=== PATIENT | male | born 1955 | race Caucasian/White ===

== ENCOUNTER 2024-01-30 02:42 | Emergency (ER) | payer SELFPAY ==
[2024-01-30 02:45] VITALS: BP 125/73; PULSE 71; RESP 22; TEMP 36.7; O2SAT 95; BMI 34.4
--- NOTE | 2024-01-30 02:52 | ECG_ITS ---
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 Measurements Intervals [place] Rate: 73 P: 56 LA: 150 QRS: 62 QRSD: 87 T: 36 QT: 339 QTc: 374 Interpretive Statements SINUS RHYTHM WITH FREQUENT VENTRICULAR PREMATURE COMPLEXES ABNORMAL RHYTHM ECG No previous ECG available for comparison Electronically Signed On 01-30-2024 17:43:19 CDT by Gala Ariza M.D. [id number]
--- NOTE | 2024-01-30 02:56 | XRR_ITS ---
PROCEDURE INFORMATION: Exam: XR Chest Exam date and time: 01/30/2024 3:00 AM Age: 69 years old Clinical indication: Chest pressure; Patient HX: C/O chest pain; Additional info: Cp TECHNIQUE: Imaging protocol: Radiologic exam of the chest. Views: 1 view. COMPARISON: No relevant prior studies available. FINDINGS: Lungs: Scattered granulomas, largest of which is appreciated over the lateral left upper lobe. Prominent right hilum, likely secondary to granulomatous lymphadenopathy. Pleural spaces: Unremarkable. No pleural effusion. No pneumothorax. Heart/Mediastinum: Likely prominent epicardial fat pad. Vasculature: Atherosclerotic disease of the aortic arch. Bones/joints: Diffuse degenerative change of the visualized osseous structures. XR/XR chest 1V portable [id number] IMPRESSION: Asymmetric prominent right hilum likely secondary to granulomatous lymphadenopathy. CT of the chest with contrast should be obtained for definitive assessment.
[2024-01-30 03:03] VITALS: BP 122/83; PULSE 80; RESP 33; O2SAT 95
[2024-01-30 03:07] LABS: Basophils % 0.4 %; Hematocrit 45.9 % (37-53); Lymphocytes # 0.4 10^3/uL (0.8-4.8); Lymphocytes % 15.3 %; Mean Corpuscular HGB Conc 33.6 g/dL (30-55); Mean Corpuscular Hemoglobin 29.5 pg (27-33); Mean Corpuscular Volume 87.9 fl (82-101); Mean Platelet Volume 11.2 fL (7.4-10.4); Monocytes # 0.1 10^3/uL (0.2-0.9); Monocytes % 3.8 %; Neutrophils % 80.1 %; Nucleated Red Blood Cells % 0 %; Platelet Count 93 10^3/cmm (157-399); Red Blood Count 5.22 10^6/uL (3.85-5.65); Red Cell Distribution Width 13.4 % (12.1-15.1); White Blood Count 2.62 10^3/uL (3.29-11.43)
[2024-01-30] MEDS: lidocaine 2% viscous 15 ML, aluminum-mag hydrox-simethicon 30 ML, sucralfate oral liq 1 GM PO (03:18)
[2024-01-30 03:21] LABS: INR 1.05 (0.8-1.2)
[2024-01-30 03:22] LABS: Partial Thromboplastin Time 42.6 SECONDS (23.9-36.7)
--- NOTE | 2024-01-30 03:22 | ED_ITS ---
HPI - General Adult 2 General: Chief complaint: General Medical Stated complaint: temp chest burn n/v taken med not better Time Seen by Provider: 01/30/24 02:47 History of Present Illness: 69-year-old male gentleman with a histor y of a fever, and some diarrhea 2 days ago. He seemed to improve yesterday. This morning, he has had an indigestion type feeling in his chest and epigastrium. He vomited once without any relief. He states that usually when he vomits, he gets good relief from that. He was mildly short of breath as well. A couple of days ago he had had a cough, this is cleared. He ran fever a couple of days prior as well. He does not have any history of coronary disease. Associated symptoms: Deny confusion, headache(s), nausea or rash Review of Systems 2 Eyes: Denies: change in vision Resp: Denies: productive cough or wheezing GI: Denies: abdominal pain, nausea or hematochezia Skin/Breast: Denies: rash Neuro: Denies: headache(s), weakness in extremities, dizziness or confusion Physical Exam 2 Const: COMMON NORMALS: no acute distress GENERAL APPEARANCE: cooperative; not ill appearing and not frail appearing HENMT: COMMON NORMALS: normocephalic, atraumatic and Normal external nose present HEAD & SCALP: normocephalic and atraumatic FACE & SINUS: normal facial exam and face symmetric NOSE: Normal external nose present Eye: COMMON NORMALS: Equal, round and reactive pupils present and EOMs intact bilaterally PUPIL: Yes Equal, round and reactive pupils present Neck/C-Spine: GENERAL: Yes trachea midline Chest: CHEST: Yes Symmetrical chest wall rise Resp: COMMON NORMALS: normal respiratory effort, No retractions, No use of accessory muscles and clear to auscultation bilaterally AUSCULTATION: clear to auscultation bilaterally Cardio: COMMON NORMALS: regular rate and regular rhythm RATE: regular rate RHYTHM: regular rhythm GI: COMMON NORMALS: Normal to inspection, nondistended, normoactive bowel sounds present Extremity: COMMON NORMALS: no pedal edema Neuro: FARHAN COMA SCALE: document GCS findings [place] coma scale eye opening: Spontaneous Farhan coma scale verbal response: Orientated Farhan coma scale motor response: Obey commands [place] coma scale total score: 15 S ENSORY EXAM: Yes extremities (intact) Psych: COMMON NORMALS: speech normal SPEECH: Yes normal speech Skin: COMMON NORMALS: no rashes or lesions noted GENERAL SKIN EXAM: no rashes or lesions noted Course 2 Vital Signs: Vital signs: Vital Signs Temperature 98.1 F 01/30/24 02:45 Pulse Rate 80 01/30/24 08:50 Respiratory Rate 20 H 01/30/24 08:50 Blood Pressure 113/56 01/30/24 08:50 Pulse Oximetry 96 01/30/24 08:50 Oxygen Delivery Me thod Room Air 01/30/24 07:16 MDM - General Adult Medical Decision Making Vitals are quite stable here. He has had some improvement with GI cocktail. He has received Zofran and IV fluid here. His EKG is not remarkable. His original troponin is 18 with no change at 2h. WBC was low, with thrombocytopenia and slightly elevated liver enzymes. On further questioning, the patient has had several tick bites. This could be a cause of these findings. Because of abnormal read of chest x ray, and elevated liver enzymes, liver US completed with CT of the Chest/abd/pelvis with no signficant acute finding other than liver being greater than normal size. Will allow home. Tick panel drawn. Cover with doxycycline. symptomatic treatment otherwise. close outpt FU. Return for any worsening symptoms. Lab Data 01/30/24 02:56 01/30/24 02:56 Radiology Impressions Chest X-Ray 01/30/24 02:56 IMPRESSION: Asymmetric prominent right hilum likely secondary to granulomatous lymphadenopathy. CT of the chest with contrast should be obtained for definitive assessment. Abdomen Ultrasound 01/30/24 04:00 IMPRESSION: Dilated tubular structure at the flavio hepatis which was not investigated with Doppler signal. Differential includes dilated common bile duct versus dilated portal vein. Recommend contrasted cross-sectional evaluation for definitive assessment. Chest/Abdomen/Pelvis CT 01/30/24 04:45 IMPRESSION: Negative CT chest. No acute pathology. IMPRESSION: Negative for acute abdominopelvic pathology. COMMENTS: Consistent with the [place] [employer]'s Incidental Findings Committee white paper (J Am Bhavik Radiol 2018): Any incidental renal lesion less than 1 cm or classified as too small to characterize, or any incidental cystic renal lesion characterized as simple-appearing, is likely benign. No follow-up imaging is recommended for these lesions per consensus recommendations based on imaging criteria. Laboratory Results WBC 2.62 10^3/uL (3.29-11.43) L 01/30/24 02:56 RBC 5.22 10^6/uL (3.85-5.65) 01/30/24 02:56 Hgb 15.40 g/dL (11.27-16.99) 01/30/24 02:56 Hct 45.9 % (37-53) 01/30/24 02:56 MCV 87.9 fl (82-101) 01/30/24 02:56 MCH 29.5 pg (27-33) 01/30/24 02:56 MCHC 33.6 g/dL (30-55) 01/30/24 02:56 RDW 13.4 % (12.1-15.1) 01/30/24 02:56 Plt Count 93 10^3/cmm (157-399) L 01/30/24 02:56 MPV 11.2 fL (7.4-10.4) H 01/30/24 02:56 Neut % (Auto) 80.1 % 01/30/24 02:56 Lymph % (Auto) 15.3 % 01/30/24 02:56 [place] % (Auto) 3.8 % 01/30/24 02:56 Eos % (Auto) 0.0 % 01/30/24 02:56 Baso % (Auto) 0.4 % 01/30/24 02:56 Neut # (Auto) 2.10 10^3/uL (1.8-7.7) 01/30/24 02:56 Lymph # (Auto) 0.4 10^3/uL (0.8-4.8) L 01/30/24 02:56 [place] # (Auto) 0.1 10^3/uL (0.2-0.9) L 01/30/24 02:56 Eos # (Auto) 0.0 10^3/uL (0.0-0.8) 01/30/24 02:56 Baso # (Auto) 0.0 10^3/uL (0.0-0.1) 01/30/24 02:56 Nucleated RBC % (auto) 0 % 01/30/24 02:56 Nucleated RBCs # 0.0 /100WBC 01/30/24 02:56 PT 14.00 SECONDS (12.1-14.9) 01/30/24 02:56 INR 1.05 (0.8-1.2) 01/30/24 02:56 APTT 42.6 SECONDS (23.9-36.7) H 01/30/24 02:56 Sodium 130 mmol/L (136-145) L 01/30/24 02:56 Potassium 4.2 mmol/L (3.5-5.1) 01/30/24 02:56 Chloride 94 mmol/L (98-107) L 01/30/24 02:56 Carbon Dioxide 27 mmol/L (22-29) 01/30/24 02:56 Anion Gap 13.2 (5-19) 01/30/24 02:56 BUN 13 mg/dL (8-23) 01/30/24 02:56 Creatinine 1.1 mg/dL (0.7-1.2) 01/30/24 02:56 GFR Calculation Not Reportable 01/30/24 02:56 Glucose 131 mg/dL (65-115) H 01/30/24 02:56 Calculated Osmolality 272 mOsm/kg (285-295) L 01/30/24 02:56 Calcium 9.0 mg/dL (8.5-10.5) 01/30/24 02:56 Total Bilirubin 1.6 mg/dL (0.15-1.2) H 01/30/24 02:56 AST 120 U/L (0-40) H 01/30/24 02:56 ALT 107 U/L (0-41) H 01/30/24 02:56 Alkaline Phosphatase 320 U/L (40-130) H 01/30/24 02:56 Creatine Kinase 166 U/L (39-308) 01/30/24 02:56 Troponin T Baseline 18 ng/L (0-15) H 01/30/24 02:56 Troponin T 120 Minute 17.20 ng/L (0-15) H 01/30/24 04:54 Delta Troponin T -0.80 ABS# (0-10) L 01/30/24 04:54 NT-Pro-B Natriuret Pep 376 pg/mL (0-125) H 01/30/24 02:56 Total Protein 6.2 g/dL (6.6-8.7) L 01/30/24 02:56 Albumin 3.3 g/dL (3.5-5.2) L 01/30/24 02:56 Globulin 2.9 g/dL (1.3-4.6) 01/30/24 02:56 Lipase 70 U/L (13-60) H 01/30/24 02:56 Urine Color Yellow (Yellow) 01/30/24 05:28 Urine Appearance Clear (CLEAR) 01/30/24 05:28 Urine pH 8 (5-7) H 01/30/24 05:28 Ur Specific [place] 1.010 (1.005-1.030) 01/30/24 05:28 Urine Protein 1+ (Negative) H 01/30/24 05:28 Urine Glucose (UA) Norm (Normal) 01/30/24 05:28 Urine Ketones 1+ (Negative) H 01/30/24 05:28 Urine Blood Neg (Negative) 01/30/24 05:28 Urine Nitrate Negative (Negative) 01/30/24 05:28 Urine Bilirubin 1+ (Negative) H 01/30/24 05:28 Prot Sulfosalicylic Acd Negative (Negative) 01/30/24 05:28 Urine Urobilinogen 4 mg/dL (Negative) H 01/30/24 05:28 Ur Leukocyte Esterase Negative (Negative) 01/30/24 05:28 Urine RBC 0-4 /hpf (0-2) H 01/30/24 05:28 Urine WBC 0-4 /hpf (0-5) H 01/30/24 05:28 Ur Squamous Epith Cells 0-4 /hpf (0-5) H 01/30/24 05:28 Amorphous Sediment Not Reportable 01/30/24 05:28 Urine Bacteria Trace /hpf (NONE) 01/30/24 05:28 Urine Mucus 1+ /hpf 01/30/24 05:28 Lyme Ab (Western Blot) <0.90 index 01/30/24 04:54 All radiology interpretation(s) finalized by discharge Discharge Plan Discharge Patient Disposition: Home Clinical Impression: Vomiting, Tick borne fever Condition: Stable Prescriptions: New ondansetron 4 mg tablet,disintegrating 4 mg PO Q6H PRN (Reason: nausea and vomiting) Qty: 14 0RF doxycycline hyclate 100 mg tablet 100 mg PO BID 14 Days Qty: 28 0RF Discharge Orders: Discharge ED (Routine); Ordered 01/30/24 Ordered By: Geovanni Leonardo Patient Instructions: Opioid Safety, Pain Management, Vomiting - Adult Activity Restrictions/Additional Instructions: Follow a liquid diet for the next 24 hours. Take the nausea medicine prescribed scheduled every 4 hours while awake for the next 24 hours. Antibiotics as directed. You may begin to add solid food back and after 24 hours if no vomiting. Control fever. Return for inability to control temperatures, vomiting liquids or medications, worsening pain despite treatment, other concerning symptoms. See your doctor later this week. Coding Level of Care Code ED Topographical Drafter for Indira Camp
[2024-01-30 03:27] LABS: Troponin(5th) Baseline 18 ng/L (0-15)
[2024-01-30 03:30] LABS: Slide Review Slide Review Perform
[2024-01-30 03:36] LABS: Alanine Aminotransferase 107 U/L (0-41); Albumin Level 3.3 g/dL (3.5-5.2); Alkaline Phosphatase 320 U/L (40-130); Anion Gap 13.2 (5-19); Aspartate Amino Transferase 120 U/L (0-40); Blood Urea Nitrogen 13 mg/dL (8-23); Carbon Dioxide 27 mmol/L (22-29); Chloride 94 mmol/L (98-107); Creatine Phosphokinase 166 U/L (39-308); Creatinine Clr Calc Pharmacy 76.0958; Globulin 2.9 g/dL (1.3-4.6); Glucose 131 mg/dL (65-115); Lipase 70 U/L (13-60); NT Pro B Type Natriuretic Pept 376 pg/mL (0-125); Osmolality Calculated 272 mOsm/kg (285-295); Potassium 4.2 mmol/L (3.5-5.1); Sodium 130 mmol/L (136-145); Total Bilirubin 1.6 mg/dL (0.15-1.2); Total Protein 6.2 g/dL (6.6-8.7)
--- NOTE | 2024-01-30 04:00 | USR_ITS ---
PROCEDURE INFORMATION: Exam: US Abdomen, Limited; Right Upper Quadrant Exam date and time: 01/30/2024 4:53 AM Age: 69 years old Clinical indication: Abdominal pain; Epigastric; Prior surgery; Surgery date: 6+ months; Surgery type: Gb removed; Additional info: Epigastric pain, elevated liver enzymes TECHNIQUE: Imaging protocol: Real time ultrasound of the abdomen with image documentation. Limited exam focused on the right upper quadrant. COMPARISON: No relevant prior studies available. FINDINGS: Liver: Dilated tubular structures appreciated at the flavio hepatis. Doppler was not performed and therefore cannot exclude vascular etiology. Gallbladder: Surgically absent. Biliary ducts: Normal. No stones. No dilation. Pancreas: Visualized pancreas is unremarkable. Right kidney: Normal. No mass. No hydronephrosis. US/US abdomen limited [id number] IMPRESSION: Dilated tubular structure at the flavio hepatis which was not investigated with Doppler signal. Differential includes dilated common bile duct versus dilated portal vein. Recommend contrasted cross-sectional evaluation for definitive assessment.
--- NOTE | 2024-01-30 04:45 | CTR_ITS ---
PROCEDURE INFORMATION: Exam: CT Chest With Contrast; Diagnostic Exam date and time: 01/30/2024 5:48 AM Age: 69 years old Clinical indication: Abdominal pain; Acute; Chest pressure; Prior surgery; Surgery date: 6+ months; Surgery type: Gb; Additional info: Chest and epigastric pain, elevated liver enzymes, TECHNIQUE: Imaging protocol: Diagnostic computed tomography of the chest with contrast. Radiation optimization: All CT scans at this facility use at least one of these dose optimization techniques: automated exposure control; mA and/or kV adjustment per patient size (includes targeted exams where dose is matched to clinical indication); or iterative reconstruction. Contrast material: OMNI 350; Contrast volume: 100 ml; Contrast route: INTRAVENOUS (IV); COMPARISON: CR (CHEST, ) 01/30/2024 3:00 AM RADIATION DOSE METRICS: Total DLP (mGy-cm): 1399.2 FINDINGS: Lungs: Multiple bilateral calcified granulomas. Negative for pulmonary consolidation. Negative for pulmonary mass. Negative for endobronchial obstruction. Pleural spaces: Left anterior linear calcified pleural plaques. Negative for pleural effusion. Negative pneumothorax. Heart: Negative for pericardial effusion. No significant cardiac chamber dilation. Coronary arteries: Moderate volume coronary calcifications. Lymph nodes: Unremarkable. No enlarged lymph nodes. Vasculature: Unremarkable. No aortic aneurysm. Bones/joints: Multiple smoothly healed left posterior rib fracture deformities. Negative for acute thoracic fractures. Soft tissues: Unremarkable. PROCEDURE INFORMATION: Exam: CT Abdomen And Pelvis With Contrast Exam date and time: 01/30/2024 5:48 AM Age: 69 years old Clinical indication: Abdominal pain; Acute; Chest pressure; Prior surgery; Surgery date: 6+ months; Surgery type: Gb; Additional info: Chest and epigastric pain, elevated liver enzymes, TECHNIQUE: Imaging protocol: Computed tomography of the abdomen and pelvis with contrast. Radiation optimization: All CT scans at this facility use at least one of these dose optimization techniques: automated exposure control; mA and/or kV adjustment per patient size (includes targeted exams where dose is matched to clinical indication); or iterative reconstruction. Contrast material: OMNI 350; Contrast volume: 100 ml; Contrast route: INTRAVENOUS (IV); COMPARISON: US gall bladder [id number] 01/30/2024 4:53 AM RADIATION DOSE METRICS: Total DLP (mGy-cm): 1399.2 FINDINGS: Liver: Normal. No mass. Gallbladder and bile ducts: Cholecystectomy. Nondilated biliary system. Pancreas: Normal. No ductal dilation. Spleen: Normal. No splenomegaly. Adrenal glands: Normal. No mass. Kidneys and ureters: Exophytic simple cortical cyst of the left kidney. Symmetric renal enhancement. Negative for hydronephrosis. Stomach and bowel: Unremarkable. No obstruction. No mucosal thickening. Appendix: No evidence of appendicitis. Intraperitoneal space: Unremarkable. No free air. No significant fluid collection. Vasculature: Unremarkable. No abdominal aortic aneurysm. Lymph nodes: Unremarkable. No enlarged lymph nodes. Urinary bladder: Unremarkable as visualized. Reproductive: Unremarkable as visualized. Bones/joints: Vertebral endplate concavities at L3 without acute fracture lucency visible. Normal lumbar spine alignment. Negative for acute pelvis fracture. Soft tissues: Unremarkable. CT/CT chest abdpel w/*[id number] IMPRESSION: Negative CT chest. No acute pathology. IMPRESSION: Negative for acute abdominopelvic pathology. COMMENTS: Consistent with the [employer] [place] [employer]'s Incidental Findings Committee white paper (J Am Bhavik Radiol 2018): Any incidental renal lesion less than 1 cm or classified as too small to characterize, or any incidental cystic renal lesion characterized as simple-appearing, is likely benign. No follow-up imaging is recommended for these lesions per consensus recommendations based on imaging criteria.
[2024-01-30 04:55] VITALS: BP 109/66; PULSE 75; RESP 27; O2SAT 96
[2024-01-30 05:41] LABS: Add Urine Microscopic? YES; Bilirubin Urine 1+ (Negative); Blood Urine Neg (Negative); Glucose Urine UA Norm (Normal); Ketones Urine 1+ (Negative); Leukocyte Esterase Urine Negative (Negative); Nitrate Urine Negative (Negative); Protein Urine 1+ (Negative); Sulfosalicylic Acid Urine Negative (Negative); Urine Appearance Clear (CLEAR); Urine Color Yellow (Yellow); Urobilinogen Urine 4 mg/dL (Negative); pH Urine 8 (5-7)
[2024-01-30 05:42] LABS: Bacteria Urine TRACE /hpf; Mucus Urine 1+ /hpf; RBC Urine 0-4 /hpf (0-2); Squamous Epithelial Cell Urine 0-4 /hpf (0-5); WBC Urine 0-4 /hpf (0-5)
[2024-01-30] MEDS: iohexol 350 mg/mL 500 mL Btl (per mL) IV (05:58)
[2024-01-30] MEDS: sodium chloride 0.9% 1,000 ML 999 ML IV (07:15)
[2024-01-30 07:16] VITALS: BP 113/56; PULSE 82; RESP 25; O2SAT 95
[2024-01-30] MEDS: ondansetron 2 mg/ML SDV 2 mL 4 MG IVP (07:16)
[2024-01-30] MEDS: doxycycline 100 mg Tablet PO (07:58)
[2024-01-30 08:50] VITALS: BP 113/56; PULSE 80; RESP 20; O2SAT 96
[2024-01-31 13:54] LABS: Lyme AB Screen <0.90 index
[2024-02-04 15:31] LABS: RMSF IGG DETECTED; RMSF IGM NOT DETECTED
[2024-02-07 17:04] LABS: E. Chaffeensis AB IGG <1:64; E. Chaffeensis AB IGM <1:20
== END 2024-01-30 08:51 | disposition home or self-care (01) ==
PROVIDERS: Emergency Provider Emergency Medicine
DX: A93.8 Other specified arthropod-borne viral fevers (principal); R11.11 Vomiting without nausea
CPT/HCPCS: 36415; 71045; 71260; 74177; 76705; 80053; 81001; 82550; 83690; 83880; 84484; 85025; 85610; 85730; 86618; 86666; 86757; 93005; 96361; 96374; 99285; J2405; J7030; Q9967

== ENCOUNTER 2024-11-04 04:13 | Emergency (ER) | payer MEDICARE, SELFPAY ==
[2024-11-04 04:16] VITALS: BP 139/80; PULSE 86; RESP 20; TEMP 36.6; O2SAT 92; BMI 32.1
--- NOTE | 2024-11-04 04:23 | XRR_ITS ---
PROCEDURE INFORMATION: Exam: XR Chest Exam date and time: 11/04/2024 4:34 AM Age: 69 years old Clinical indication: Cough and shortness of breath; Cough with SOB TECHNIQUE: Imaging protocol: Radiologic exam of the chest. Views: 1 view. COMPARISON: CT chest jocelinl w/*[id number] 01/30/2024 5:48 AM FINDINGS: Lungs: Unremarkable. No consolidation. Pleural spaces: Unremarkable. No pleural effusion. No pneumothorax. Heart/Mediastinum: Unremarkable. No cardiomegaly. Bones/joints: Unremarkable. XR/XR chest 1V portable [id number] IMPRESSION: No acute findings.
[2024-11-04 04:33] LABS: Basophils % 0.4 %; Eosinophils # 0.1 10^3/uL (0.0-0.8); Eosinophils % 0.5 %; Hematocrit 44.8 % (37-53); Lymphocytes # 1.2 10^3/uL (0.8-4.8); Lymphocytes % 12.5 %; Mean Corpuscular Hemoglobin 29.9 pg (27-33); Mean Corpuscular Volume 90.5 fl (82-101); Mean Platelet Volume 11.3 fL (7.4-10.4); Monocytes # 0.6 10^3/uL (0.2-0.9); Monocytes % 6.8 %; Neutrophils # 7.29 10^3/uL (1.8-7.7); Neutrophils % 79.3 %; Nucleated Red Blood Cells % 0 %; Platelet Count 169 10^3/cmm (157-399); Red Blood Count 4.95 10^6/uL (3.85-5.65); Red Cell Distribution Width 12.9 % (12.1-15.1); White Blood Count 9.21 10^3/uL (3.29-11.43)
[2024-11-04 04:45] VITALS: BP 108/65; PULSE 72; O2SAT 93
[2024-11-04 04:52] LABS: Alanine Aminotransferase 14 U/L (0-41); Albumin Level 3.7 g/dL (3.5-5.2); Alkaline Phosphatase 107 U/L (40-130); Anion Gap 16.3 (5-19); Aspartate Amino Transferase 21 U/L (0-40); Blood Urea Nitrogen 13 mg/dL (8-23); Calcium 8.4 mg/dL (8.5-10.5); Carbon Dioxide 23 mmol/L (22-29); Chloride 99 mmol/L (98-107); Creatinine Clr Calc Pharmacy 67.4363; Globulin 2.9 g/dL (1.3-4.6); Glucose 141 mg/dL (65-115); Osmolality Calculated 280 mOsm/kg (285-295); Potassium 4.3 mmol/L (3.5-5.1); Sodium 134 mmol/L (136-145); Total Bilirubin 0.2 mg/dL (0.15-1.2); Total Protein 6.6 g/dL (6.6-8.7)
[2024-11-04 05:00] VITALS: BP 112/57; PULSE 74; O2SAT 94
[2024-11-04 05:15] LABS: Influenza A POSITIVE (Negative); Influenza B NEGATIVE (Negative); Respiratory Syncytial Virus Ce NEGATIVE (Negative); SARS-CoV-2 PCR NEGATIVE (Negative)
--- NOTE | 2024-11-04 05:29 | ED_ITS ---
HPI - URI/Sore Throat 2 General: Chief Complaint: Upper Respiratory Infection Stated Complaint: SOB cough ribs hurt d/ Time Seen by Provider: 11/04/24 04:19 History of Present Illness: This patient is a 69-year-old white male who presents to the emergency department stating that he is felt ill for the past 2 days. He has had some nausea, diarrhea, cough, congestion and low-grade fever. Associated symptoms: Reports diarrhea, fever(s), nasal congestion and nausea Related Data Previous Rx's ?Medication ?Instructions ?Recorded ondansetron 4 mg disintegrating 4 mg PO Q6H PRN nausea and 01/30/24 tablet vomiting #14 tabs Allergies Allergy/AdvReac Type Severity Reaction Status Date / Time No Known Allergies Allergy Verified 01/30/24 02:59 Review of Systems 2 General: Reports: 10 or more systems reviewed and unremarkable except in HPI and below Const: Reports: fever(s) and body aches ENMT: Reports: nasal congestion Resp: Reports: non-productive cough GI: Reports: nausea and diarrhea Physical Exam 2 Const: COMMON NORMALS: no acute distress, patient oriented x3 and no limitations GENERAL APPEARANCE: cooperative HENMT: COMMON NORMALS: normocephalic, atraumatic, moist oral mucous membranes and oropharynx normal HEAD & SCALP: normal to inspection, normocephalic and atraumatic FACE & SINUS: normal facial exam NOSE: Nasal discharge present Eye: COMMON NORMALS: Equal, round and reactive pupils present, EOMs intact bilaterally and conjunctivae normal GENERAL EYE: appearance normal, both eyes and all related structures CONJUNCTIVA: Yes conjunctivae normal PUPIL: Yes Equal, round and reactive pupils present Neck/C-Spine: COMMON NORMALS: supple and no JVD Chest: COMMONS NORMALS: normal inspection of the chest Resp: COMMON NORMALS: normal respiratory effort and clear to auscultation bilaterally AUSCULTATION: clear to auscultation bilaterally Cardio: COMMON NORMALS: no JVD, regular rate, regular rhythm, No gallops present (Cardio), No murmurs present (Cardio) and No rub (Cardio) RATE: r egular rate RHYTHM: regular rhythm GI: COMMON NORMALS: Normal to inspection, nondistended, normoactive bowel sounds present, Soft to palpation and non-tender AUSCULTATION: Yes normoactive bowel sounds PALPATION: Yes Soft to palpation : COMMON NORMALS: Yes no CVA tenderness BLADDER/KIDNEY EXAM: Yes no CVA tenderness Back/Pelvis: COMMON NORMALS: no CVA tenderness and thoracic and lumbar spine normal to inspection Extremity: COMMON NORMALS: normal to inspection Neuro: COMMON NORMALS: patient oriented x3 and CN's II-XII intact bilaterally Psych: COMMON NORMALS: mental status grossly normal, Normal thought process present and cooperative THOUGHT PROCESS: Normal thought process present Skin: COMMON NORMALS: no rashes or lesions noted, turgor normal and no jaundice GENERAL SKIN EXAM: no rashes or lesions noted and turgor normal Course 2 Vital Signs: Vital signs: Vital Signs Temperature 97.9 F 11/04/24 04:16 Pulse Rate 72 11/04/24 04:45 Respiratory Rate 20 H 11/04/24 04:16 Blood Pressure 108/65 11/04/24 04:45 Pulse Oximetry 93 11/04/24 04:45 Oxygen Delivery Me thod Room Air 11/04/24 04:45 MDM - URI/Sore Throat Medical Decision Making Chest x-ray did not reveal any infiltrates. CBC and CMP were normal. COVID- negative, RSV negative, influenza A+. Patient was instructed to take [id number] cough and cold medications. Tylenol and/or Motrin as needed for fever, aches and pains. Push fluids get some rest. Follow-up with primary care physician as needed. He was discharged in stable condition. Lab Data 11/04/24 04:25 11/04/24 04:25 Radiology Impressions Chest X-Ray 11/04/24 04:23 IMPRESSION: No acute findings. Laboratory Results WBC 9.21 10^3/uL (3.29-11.43) 11/04/24 04:25 RBC 4.95 10^6/uL (3.85-5.65) 11/04/24 04:25 Hgb 14.80 g/dL (11.27-16.99) 11/04/24 04:25 Hct 44.8 % (37-53) 11/04/24 04:25 MCV 90.5 fl (82-101) 11/04/24 04:25 MCH 29.9 pg (27-33) 11/04/24 04:25 MCHC 33.0 g/dL (30-55) 11/04/24 04:25 RDW 12.9 % (12.1-15.1) 11/04/24 04:25 Plt Count 169 10^3/cmm (157-399) 11/04/24 04:25 MPV 11.3 fL (7.4-10.4) H 11/04/24 04:25 Neut % (Auto) 79.3 % 11/04/24 04:25 Lymph % (Auto) 12.5 % 11/04/24 04:25 [place] % (Auto) 6.8 % 11/04/24 04:25 Eos % (Auto) 0.5 % 11/04/24 04:25 Baso % (Auto) 0.4 % 11/04/24 04:25 Neut # (Auto) 7.29 10^3/uL (1.8-7.7) 11/04/24 04:25 Lymph # (Auto) 1.2 10^3/uL (0.8-4.8) 11/04/24 04:25 [place] # (Auto) 0.6 10^3/uL (0.2-0.9) 11/04/24 04:25 Eos # (Auto) 0.1 10^3/uL (0.0-0.8) 11/04/24 04:25 Baso # (Auto) 0.0 10^3/uL (0.0-0.1) 11/04/24 04:25 Nucleated RBC % (auto) 0 % 11/04/24 04:25 Nucleated RBCs # 0.0 /100WBC 11/04/24 04:25 Sodium 134 mmol/L (136-145) L 11/04/24 04:25 Potassium 4.3 mmol/L (3.5-5.1) 11/04/24 04:25 Chloride 99 mmol/L (98-107) 11/04/24 04:25 Carbon Dioxide 23 mmol/L (22-29) 11/04/24 04:25 Anion Gap 16.3 (5-19) 11/04/24 04:25 BUN 13 mg/dL (8-23) 11/04/24 04:25 Creatinine 1.2 mg/dL (0.7-1.2) 11/04/24 04:25 GFR Calculation Not Reportable 11/04/24 04:25 Glucose 141 mg/dL (65-115) H 11/04/24 04:25 Calculated Osmolality 280 mOsm/kg (285-295) L 11/04/24 04:25 Calcium 8.4 mg/dL (8.5-10.5) L 11/04/24 04:25 Total Bilirubin 0.2 mg/dL (0.15-1.2) 11/04/24 04:25 AST 21 U/L (0-40) 11/04/24 04:25 ALT 14 U/L (0-41) 11/04/24 04:25 Alkaline Phosphatase 107 U/L (40-130) 11/04/24 04:25 Total Protein 6.6 g/dL (6.6-8.7) 11/04/24 04:25 Albumin 3.7 g/dL (3.5-5.2) 11/04/24 04:25 Globulin 2.9 g/dL (1.3-4.6) 11/04/24 04:25 Coronavirus (PCR) Negative (Negative) 11/04/24 04:23 Influenza A (PCR) Positive (Negative) 11/04/24 04:23 Influenza Type B (PCR) Negative (Negative) 11/04/24 04:23 RSV (PCR) Negative (Negative) 11/04/24 04:23 All radiology interpretation(s) finalized by discharge Discharge Plan Discharge Patient Disposition: Home Clinical Impression: Influenza Condition: Stable Prescriptions: No Action ondansetron 4 mg tablet,disintegrating 4 mg PO Q6H PRN (Reason: nausea and vomiting) Qty: 14 0RF Discharge Orders: Discharge ED (Routine); Ordered 11/04/24 Ordered By: Rhett Zheng Referrals: Roberto Bright [Primary Care Provider] - Patient Instructions: Influenza (DC) Print Language: Polish Coding Level of Care Code ED Waiter/Waitress Economy Class for Indira Camp
[2024-11-04 05:30] VITALS: BP 123/67; PULSE 86; O2SAT 95
[2024-11-04 06:00] VITALS: BP 105/59; PULSE 71; O2SAT 93
[2024-11-04 06:24] VITALS: BP 105/72; PULSE 86; O2SAT 95
== END 2024-11-04 06:20 | disposition home or self-care (01) ==
PROVIDERS: Emergency Provider Emergency Medicine; PCP Family Medicine
DX: J10.1 Influenza due to other identified influenza virus with other respiratory manifestations (principal); Z11.52 Encounter for screening for COVID-19
CPT/HCPCS: 36415; 71045; 80053; 85025; 87637; 99284

== ENCOUNTER 2025-03-19 08:29 | Outpatient (CLI) | payer MEDICARE, SELFPAY ==
--- NOTE | 2025-03-19 08:34 | CT_ITS ---
WS: [id number] LDCT LUNG CANCER SCREENING TECHNIQUE: Noncontrast CT of the chest with coronal and sagittal reformatted images. CLINICAL INFORMATION: NICOTINE DEPENDENCE,CIGARETTES COMPARISON: None. DLP: 95.89 mGy.cm DIvol: Mean CTDIvol: 2.10 (mGy) All CT scans at [facility] use at least one of these dose optimization techniques: automated exposure control; mA and/or kV adjustment per patient size (includes targeted exams where dose is matched to clinical indication); or iterative reconstruction. FINDINGS: Few calcified granulomas. Subsegmental atelectasis in the RIGHT middle lobe and RIGHT lower lobe. Tiny RIGHT perifissural nodules. Tiny LEFT perifissural nodules. Calcified pleural plaques LEFT upper lobe. Aortic calcification. Normal caliber thoracic aorta. Coronary calcification. No mediastinal or hilar lymphadenopathy. No axillary lymphadenopathy. Small esophageal hernia. Adrenal glands are normal. Hepatomegaly. Cholecystectomy clips. Fatty atrophy of the pancreas. Mild thoracic curve. Mild thoracic kyphosis. CT/CT lung screening [id number] IMPRESSION: LUNG-RADS: 2-Benign Appearance or Behavior FOLLOW UP: 12 Month: Continue annual screening with LDCT
== END 2025-03-19 08:30 | disposition home or self-care (01) ==
LOC: RAD 08:30
PROVIDERS: PCP Family Medicine; Visit Provider Nurse Practitioner Family
DX: Z12.2 Encounter for screening for malignant neoplasm of respiratory organs (principal); F17.210 Nicotine dependence, cigarettes, uncomplicated; J84.10 Pulmonary fibrosis, unspecified; J98.11 Atelectasis; J92.9 Pleural plaque without asbestos; I70.0 Atherosclerosis of aorta; I25.10 Atherosclerotic heart disease of native coronary artery without angina pectoris; K44.9 Diaphragmatic hernia without obstruction or gangrene; R16.0 Hepatomegaly, not elsewhere classified; Z90.49 Acquired absence of other specified parts of digestive tract; K86.89 Other specified diseases of pancreas; M43.8X4 Other specified deforming dorsopathies, thoracic region; M40.294 Other kyphosis, thoracic region
CPT/HCPCS: 71271

== ENCOUNTER 2025-04-01 07:43 | Outpatient (CLI) | payer MEDICARE, SELFPAY ==
--- NOTE | 2025-04-01 07:49 | USCV_ITS ---
Rhett Pak Age: 70 Gender: M : 1955 Exam Date: 04/01/2025 08:10 Ordering Phys: Christine Christensen NP Technologist: SHAUN Exam Location: [facility] [place] Indication: AAA Screening HISTORY: Diameter (cm) AP x Transverse x Length Velocity (cm/s) Waveform Prox Aorta: 1.90 x 1.70 x 53.20 Triphasic Mid Aorta: 1.80 x 1.80 x 74.80 Triphasic Distal Aorta: 1.60 x 1.40 x 65.30 Triphasic Right Iliac Prox: 1.20 x 0.93 x 120.90 Triphasic Left Iliac Prox: 1.07 x 0.80 x 151.10 Triphasic Stent Prox Landing x x Aneurysmal Sac Max x x Lt Lat Sac Dim Rt Lat Sac Dim Stent Dist Landing x x Right Iliac Stent x x Left Iliac Stent x x Right Renal Art Left Renal Art FINDINGS: CONCLUSIONS No evidence of abdominal aortic or bilateral iliac aneurysm. 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 Abner Alanis MD (Electronically Signed) Final Date: 01 April 2025 09:01 S
== END 2025-04-01 07:44 | disposition home or self-care (01) ==
LOC: RAD 07:43
PROVIDERS: PCP Nurse Practitioner Family; Visit Provider Nurse Practitioner Family
DX: Z13.6 Encounter for screening for cardiovascular disorders (principal); I77.89 Other specified disorders of arteries and arterioles
CPT/HCPCS: 76706